=== PATIENT | female | born 1960 | race Asian ===

== ENCOUNTER 2022-09-20 16:29 | Emergency (ER) | payer OTHER ==
[2022-09-20 16:54] VITALS: BP 125/71; PULSE 72; RESP 18; TEMP 98.4; BMI 20.5
[2022-09-20] MEDS ORDERED: KETOROLAC TROMETHAMINE 10 MG TABLET PO ONE (17:01)
[2022-09-20] MEDS ORDERED: IBUPROFEN 400 MG TABLET (FP) PO ONE ×2 (17:25→17:26)
== END 2022-09-20 18:34 | disposition home or self-care (01) ==
LOC: FER 16:29
DX: M54.2 Cervicalgia (principal); M79.601 Pain in right arm; M54.6 Pain in thoracic spine; V43.52XA Car driver injured in collision with other type car in traffic accident, initial encounter
CPT/HCPCS: 73030-TC-RT-FY; 73070-TC-RT-FY; 73110-TC-RT-FY; 99284-25